=== PATIENT | female | born 2000 | race Caucasian/White ===

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

== ENCOUNTER 2019-01-16 15:30 | Emergency (ER) | payer BC ==
[2019-01-16 15:39] VITALS: BP 117/81
[2019-01-16] MEDS ORDERED: Ketorolac INJ* 30 MG/ML 1 ML VIAL IM ONE (15:46)
--- NOTE | 2019-01-16 15:50 | ED ---
GI/ HPI - HPI Summary HPI Summary: 19 year old female presents with right lower quadrant pain for the past day. States she's had the past due to ovarian cyst. She has a normal appetite. No nausea vomiting. Pain hurts worse when she walks. she denies any fever. She denies any abnormal vaginal discharge. She is on control. she denies any urinary symptoms. No flank pain. Pain does not move anywhere. hurts more when walking. - History of Current Complaint Chief Complaint: UCAbdominalPain Time Seen by Provider: 01/16/19 15:40 Stated Complaint: POSSIBLE CYST ON OVARIES Hx Last Menstrual Period: 12/12/18 Pain Intensity: 7 - Allergy/Home Medications Allergies/Adverse Reactions: Allergies Allergy/AdvReac Type Severity Reaction Status Date / Time No Known Allergies Allergy Verified 01/16/19 15:38 Home Medications: Home Medications [facility] Control 1 tab PO DAILY 01/16/19 [History Confirmed 01/16/19] Ibuprofen [Advil] 600 mg PO ONCE PRN 01/16/19 [History Confirmed 01/16/19] PMH/Surg Hx/FS Hx/Imm Hx Endocrine/Hematology History: Denies: Hx Diabetes Cardiovascular History: Denies: Hx Hypertension Infectious Disease History: No Infectious Disease History: Denies: Traveled Outside the [place] in Last 30 Days - Family History Known Family History: Positive: Non-Contributory Family History: Family history of kidney stones. - Social History Alcohol Use: Weekly Substance Use Type: Reports: None Smoking Status (MU): Never Smoked Tobacco Review of Systems Negative: Fever Negative: Chest Pain Negative: Shortness Of Breath Positive: Abdominal Pain. Negative: Vomiting, Diarrhea, Nausea All Other Systems Reviewed And Are Negative: Yes Physical Exam Triage Information Reviewed: Yes Vital Signs On Initial Exam: Initial Vitals Temp Pulse Resp BP Pulse Ox 98.7 F 74 18 117/81 100 01/16/19 15:34 01/16/19 15:34 01/16/19 15:34 01/16/19 15:34 01/16/19 15:34 Vital Signs Reviewed: Yes Appearance: Positive: Well-Appearing Skin: Positive: Warm, Dry Head/Face: Positive: Normal Head/Face Inspection Eyes: Positive: Normal, Conjunctiva Clear ENT: Positive: Pharynx normal Respiratory/Lung Sounds: Positive: Clear to Auscultation, Breath Sounds Present Cardiovascular: Positive: Normal, RRR Abdomen Description: Positive: Soft, Other: - tenderness right pelvic area, neg obturator and rovsings. Negative: McBurney's Point Tenderness Bowel Sounds: Positive: Present Musculoskeletal: Positive: Normal Neurological: Positive: Normal Psychiatric: Positive: Normal Diagnostics - Vital Signs Vital Signs Temp Pulse Resp BP Pulse Ox 01/16/19 15:34 98.7 F 74 18 117/81 100 - Laboratory Lab Statement: Any lab studies that have been ordered have been reviewed, and results considered in the medical decision making process. - Ultrasound No standard instances Ultrasound Interpretation Completed By: Radiologist Summary of Ultrasound Findings: IMPRESSION: Unremarkable pelvic ultrasound. Re-Evaluation - Re-Evaluation First Eval Re-Evaluation Time: 16:27 Change: Unchanged Comment: still nontender mcburney point GIGU Course/Dx - Course Course Of Treatment: 19 year old female presents with right lower quadrant pain for the past day. States she's had the past due to ovarian cyst. She has a normal appetite. No nausea vomiting. Pain hurts worse when she walks. she denies any fever. She denies any abnormal vaginal discharge. She is on control. she denies any urinary symptoms. No flank pain. Pain does not move anywhere. hurts more when walking. On exam tenderness right pelvic area. Nontender over McBurney's point. Negative obturator. Patient appears well. Urine likely contaminant so will wait for culture. ultrasound shows no acute findings. discussed results with patient. patient declined any change of pelvic infection. at this time is not presenting as an appendicitis but warned if develop vomiting, fever, or worsening pain to go to ED for further evaluation. patient understand and agrees with plan. - Diagnoses Differential Diagnoses - Female: Ovarian Cyst, Ovarian Torsion, Urinary Tract Infection Provider Diagnoses: Abdominal pain Discharge - Sign-Out/Discharge Documenting (check all that apply): Patient Departure All imaging exams completed and their final reports reviewed: Yes - Discharge Plan Condition: Good Disposition: HOME Patient Education Materials: Pelvic Pain in Women (ED) Referrals: [facility] [Z.BUSINESS, APPLICATION, OTHER] - Additional Instructions: Take Tylenol or ibuprofen every 6 hours for pain can apply heat Follow up with [facility] Go to ED if develop vomiting, worsening pain, fever or any new or worsening symptoms - Billing Disposition and Condition Condition: GOOD Disposition: Home - Attestation Statements Provider Attestation: I was available for consult. This patient was seen by the LAWRENCE. The patient was not presented to, seen by, or examined by me. -Johnathon
== END 2019-01-16 16:35 | disposition home or self-care (01) ==
LOC: UCEAST 15:30
DX: R10.31 Right lower quadrant pain (principal)
CPT/HCPCS: 76830; 81003; 84702; 87086; 99211; G0463; J1885